=== PATIENT | female | born 1935 | race African-American/Black ===

== ENCOUNTER 2018-04-18 13:15 | Inpatient (IN) | payer MEDICARE, MEDICAID ==
[~2018-04-18] VITALS: Ht 162.6 cm; Wt 68.7 kg
[~2018-04-18 13:15] MED LIST: ASPIRIN EC81 MG ORAL; AUGMENTIN 875-1 EAC1 ORAL; BACTRIM DS TAB1 EAC1 ORAL; BRIMONIDINE TART5 ML BOTH EYES; COLACE100 MG ORAL; COMBIGAN EYE DRO5 ML OP; DIOVAN160 MG ORAL; FEMARA2.5 MG ORAL; KLOR-CON 1010 MEQ ORAL; LIPITOR10 MG ORAL; LUMIGAN2.5 ML BOTH EYES; METOPROLOL SUCC25 MG ORAL; METOPROLOL TART25 MG ORAL; NIFEDIPINE ER30 MG ORAL; PHENAZOPYRIDIN200 MG ORAL; POTASSIUM CHLO20 ME3 PO
[2018-04-18] MEDS ORDERED: Sodium Chloride 500ML 500 ML IV ONE (13:21)
[2018-04-18] MEDS ORDERED: Solu-MEDROL 125mg Inj IVP ONE (13:30)
--- NOTE | 2018-04-18 13:34 | Diagnostic Imaging Report ---
EXAM: XR Chest, 1 View CLINICAL HISTORY: SOB TECHNIQUE: Frontal view of the chest. COMPARISON: Chest x-ray 07/16/16 FINDINGS: Lungs: Hypoventilatory lungs. Bibasilar lung atelectasis. Evidence of COPD. Pleural space: Unremarkable. No pneumothorax. Heart: Unremarkable. No cardiomegaly. Mediastinum: Unremarkable. Bones/joints: Degenerative changes of the spine. IMPRESSION: 1. Hypoventilatory lungs. Bibasilar lung atelectasis. 2. Evidence of COPD.
[2018-04-18] MEDS: Albuterol ud Inhalation HHN SCH ×3 (13:38→14:00)
[2018-04-18] MEDS: Ipratropium 0.02% Inh Soln 2.5ml UD HHN SCH ×3 (13:38→14:00)
--- NOTE | 2018-04-18 13:53 | Emergency Room Report ---
History of Present Illness General Chief Complaint: Dyspnea/Respdistress Source: Patient, EMS Present Illness HPI Patient is a 83-year-old female who presented after increased shortness of breath. Patient gradual onset of symptoms. Patient reports having prior history of COPD. The patient is currently a smoker. The patient had the reported increased difficulty with breathing for the past few days which had worsened. She denies any fever. The patient reportedly takes inhalers the without any improvement. Allergies: Coded Allergies: LEVOFLOXACIN (Verified Allergy, Unknown, 12/31/14) Patient History Past Medical History: see triage record Reviewed Nursing Documentation: PMH: Agreed; PSxH: Agreed Nursing Documentation-PMH Past Medical History: No History, Except For Hx Cardiac Problems: Yes Hx Hypertension: Yes Hx Pacemaker: No Hx Asthma: No Hx COPD: No Hx Diabetes: No Hx Cancer: Yes Hx Gastrointestinal Problems: No Hx Dialysis: No Hx Neurological Problems: No Hx Cerebrovascular Accident: No Hx Seizures: No Hx Dizziness: Yes Hx Syncope: Yes Review of Systems All Other Systems: negative except mentioned in HPI Physical Exam Vital Signs Date Time Temp Pulse Resp B/P (MAP) Pulse Ox O2 Delivery O2 Flow Rate FiO2 04/18/18 13:12 97.5 83 18 157/71 96 Room Air 97.5 04/18/18 13:38 21 Sp02 EP Interpretation: reviewed, normal General Appearance: normal inspection, alert, GCS 15, thin, Chronically Ill Head: atraumatic ENT: normal ENT inspection, hearing grossly normal, normal voice Neck: normal inspection, full range of motion, supple, no bony tend Respiratory: normal inspection, no retraction, wheezing, expiration Cardiovascular #1: no edema, irregularly irregular Gastrointestinal: normal inspection, normal bowel sounds, non tender, soft, no guarding, no hernia Genitourinary: no CVA tenderness Musculoskeletal: normal inspection, back normal, normal range of motion Neurologic: normal inspection, alert, responsive, speech normal Psychiatric: normal inspection, judgement/insight normal, mood/affect normal Skin: normal inspection, normal color, no rash Medical Decision Making Diagnostic Impression: Primary Impression: COPD exacerbation Additional Impressions: Atrial arrhythmia Hematuria UTI (urinary tract infection) ER Course Patient presented for shortness of breath.Differential included but was not limited to anemia, pneumonia, pneumothorax, myocardial infarction, pericardial effusion, congestive heart failure, acidosis. Because of complexity of patient' s case laboratory testing and imaging studies were ordered. EKG interpreted by me showed normal sinus rhythm with a rate of 78 with multiple PACs. The patient was given breathing treatments as well as IV steroids. Patient was started on IV magnesium for arrhythmia.Patient was discussed with for Dr. Quiñonez for inpatient management Labs Test 04/18/18 13:45 04/18/18 14:50 White Blood Count 5.4 K/UL (4.8-10.8) Red Blood Count 4.64 M/UL (4.20-5.40) Hemoglobin 13.8 G/DL (12.0-16.0) Hematocrit 42.5 % (37.0-47.0) Mean Corpuscular Volume 91 FL (80-99) Mean Corpuscular Hemoglobin 29.6 PG (27.0-31.0) Mean Corpuscular Hemoglobin Concent 32.4 G/DL (32.0-36.0) Red Cell Distribution Width 14.9 % (11.6-14.8) Platelet Count 180 K/UL (150-450) Mean Platelet Volume 8.7 FL (6.5-10.1) Neutrophils (%) (Auto) 53.0 % (45.0-75.0) Lymphocytes (%) (Auto) 29.0 % (20.0-45.0) Monocytes (%) (Auto) 10.8 % (1.0-10.0) Eosinophils (%) (Auto) 5.5 % (0.0-3.0) Basophils (%) (Auto) 1.8 % (0.0-2.0) Sodium Level 137 MMOL/L (136-145) Potassium Level 4.6 MMOL/L (3.5-5.1) Chloride Level 104 MMOL/L (98-107) Carbon Dioxide Level 27 MMOL/L (21-32) Anion Gap 6 mmol/L (5-15) Blood Urea Nitrogen 12 mg/dL (7-18) Creatinine 0.8 MG/DL (0.55-1.30) Estimat Glomerular Filtration Rate mL/min (>60) Glucose Level 91 MG/DL (74-106) Lactic Acid Level 1.10 mmol/L (0.4-2.0) Calcium Level 9.4 MG/DL (8.5-10.1) Total Bilirubin 0.6 MG/DL (0.2-1.0) Aspartate Amino Transf (AST/SGOT) 46 U/L (15-37) Alanine Aminotransferase (ALT/SGPT) 21 U/L (12-78) Alkaline Phosphatase 92 U/L (46-116) Total Creatine Kinase 107 U/L (26-308) Creatine Kinase MB 1.0 NG/ML (0.0-3.6) Creatine Kinase MB Relative Index 0.9 Troponin I 0.000 ng/mL (0.000-0.056) Pro-B-Type Natriuretic Peptide 50 pg/mL (0-125) Total Protein 7.8 G/DL (6.4-8.2) Albumin 3.5 G/DL (3.4-5.0) Globulin 4.3 g/dL Albumin/Globulin Ratio 0.8 (1.0-2.7) Urine Color Pale yellow Urine Appearance Clear Urine pH 6.5 (4.5-8.0) Urine Specific [place] 1.010 (1.005-1.035) Urine Protein 1+ (NEGATIVE) Urine Glucose (UA) Negative (NEGATIVE) Urine Ketones 2+ (NEGATIVE) Urine Occult Blood 1+ (NEGATIVE) Urine Nitrite Positive (NEGATIVE) Urine Bilirubin Negative (NEGATIVE) Urine Urobilinogen 1 MG/DL (0.0-1.0) Urine Leukocyte Esterase 1+ (NEGATIVE) Urine RBC 5-10 /HPF (0 - 2) Urine WBC 10-15 /HPF (0 - 2) Urine Squamous Epithelial Cells Few /LPF (NONE/OCC) Urine Bacteria Many /HPF (NONE) EKG Diagnostic Results Rate: normal Rhythm: NSR, other - multiple pacs ST Segments: no acute changes Rhythm Strip Diag. Results EP Interpretation: yes Rhythm: NSR, other - multiple pacs Chest X-Ray Diagnostic Results Chest X-Ray Diagnostic Results : Chest X-Ray Ordered: Yes # of Views/Limited/Complete: 1 View Indication: Shortness of Breath EP Interpretation: No Interpretation: no consolidation, no effusion, no pneumothorax, no acute cardiopulmonary disease, other - copd changes Impression: Other - COPD Electronically Signed by: Electronically signed by Dr. Eusebio Lake M.D. Last Vital Signs Date Time Temp Pulse Resp B/P (MAP) Pulse Ox O2 Delivery O2 Flow Rate FiO2 04/18/18 13:38 77 22 98 Room Air 21 04/18/18 13:12 97.5 157/71 97.5 Status: unchanged Disposition: ADMITTED INPATIENT Condition: Serious Eusebio Lake MD Apr 18, 2018 13:53
[2018-04-18 13:57] VITALS: BP 137/71
[2018-04-18 14:04] LABS: BASOPHILS % (AUTO) 1.8 % (0.0-2.0); EOSINOPHILS % (AUTO) 5.5 % (0.0-3.0); HEMATOCRIT 42.5 % (37.0-47.0); HEMOGLOBIN 13.8 G/DL (12.0-16.0); MEAN CORPUSCULAR VOLUME 91 FL (80-99); MONOCYTES % (AUTO) 10.8 % (1.0-10.0); PLATELET COUNT 180 K/UL (150-450); RED BLOOD COUNT 4.64 M/UL (4.20-5.40); RED CELL DISTRIBUTION WIDTH 14.9 % (11.6-14.8); WHITE BLOOD COUNT 5.4 K/UL (4.8-10.8)
[2018-04-18 14:13] LABS: ANION GAP 6 mmol/L (5-15); BLOOD UREA NITROGEN 12 mg/dL (7-18); CALCIUM 9.4 MG/DL (8.5-10.1); CARBON DIOXIDE 27 MMOL/L (21-32); CHLORIDE 104 MMOL/L (98-107); CREATININE 0.8 MG/DL (0.55-1.30); POTASSIUM 4.6 MMOL/L (3.5-5.1); SODIUM 137 MMOL/L (136-145)
[2018-04-18 14:26] LABS: ALANINE AMINOTRANSFERASE 21 U/L (12-78); ALBUMIN 3.5 G/DL (3.4-5.0); ALBUMIN/GLOBULIN RATIO 0.8 (1.0-2.7); ALKALINE PHOSPHATASE 92 U/L (46-116); ASPARTATE AMINO TRANSFERASE 46 U/L (15-37); BILIRUBIN,TOTAL 0.6 MG/DL (0.2-1.0); CREATINE KINASE 107 U/L (26-308)
[2018-04-18] MEDS ORDERED: Albuterol ud Inhalation HHN ONE (15:15)
[2018-04-18] MEDS ORDERED: guaiFENesin 100mg/5ml Liq ud ORAL ONE (15:15)
[2018-04-18 15:25] LABS: APPEARANCE,URINE CLEAR; BILIRUBIN, URINE NEGATIVE (NEGATIVE); COLOR,URINE PALE YELLOW; GLUCOSE, URINE (UA) NEGATIVE (NEGATIVE); KETONES,URINE 2+ (NEGATIVE); LEUKOCYTE ESTERASE ,URINE 1+ (NEGATIVE); NITRITE,URINE POSITIVE (NEGATIVE); PH,URINE 6.5 (4.5-8.0); PROTEIN,URINE 1+ (NEGATIVE); UROBILINOGEN,URINE 1 MG/DL (0.0-1.0)
[2018-04-18] MEDS ORDERED: cefTRIAXone 1 GM in NS 55 ML IVPB ONE (15:45)
[2018-04-18 16:10] VITALS: BP 141/113
[2018-04-18 16:28] VITALS: BP 168/80
[2018-04-18] MEDS ORDERED: KLOR-CON 1010 MEQ ORAL (16:36)
[2018-04-18 17:45] VITALS: BP 153/70
[2018-04-18 20:00] VITALS: BP 136/90
[2018-04-18] MEDS ORDERED: Albuterol/Ipratropium 3ml neb HHN PRN (21:22)
[2018-04-19] VITALS: BP 140/83
[2018-04-19 04:00] VITALS: BP 120/60
[2018-04-19 05:33] LABS: HEMOGLOBIN 13.4 G/DL (12.0-16.0); MEAN CORPUSCULAR VOLUME 91 FL (80-99); PLATELET COUNT 205 K/UL (150-450); RED CELL DISTRIBUTION WIDTH 14.5 % (11.6-14.8); WHITE BLOOD COUNT 3.3 K/UL (4.8-10.8)
[2018-04-19 06:07] LABS: ANION GAP 10 mmol/L (5-15); BLOOD UREA NITROGEN 15 mg/dL (7-18); CALCIUM 9.5 MG/DL (8.5-10.1); CARBON DIOXIDE 24 MMOL/L (21-32); CHLORIDE 107 MMOL/L (98-107); CREATININE 0.8 MG/DL (0.55-1.30); POTASSIUM 3.1 MMOL/L (3.5-5.1); SODIUM 141 MMOL/L (136-145)
[2018-04-19 08:00] VITALS: BP 149/77
[2018-04-19] MEDS ORDERED: NIFEdipine 10mg cap ORAL SCH (09:00)
[2018-04-19] MEDS: Docusate 100mg cap ORAL SCH ×3 (09:00→09:27)
[2018-04-19] MEDS ORDERED: Brimonidine 0.2% Opth Sol BOTH EYES SCH (09:00)
[2018-04-19] MEDS: Irbesartan 150mg tablet ORAL SCH (09:18)
[2018-04-19] MEDS: Metoprolol Succinate XL 25mg tab ORAL SCH (09:20)
[2018-04-19] MEDS: NIFEdipine 10mg cap ORAL SCH ×2 (09:20→18:41)
[2018-04-19] MEDS: Guaifenesin/DM 10ml syrup ORAL PRN ×2 (11:23→14:53)
[2018-04-19 12:00] VITALS: BP 111/75
[2018-04-19 16:00] VITALS: BP 150/70
[2018-04-19] MEDS ORDERED: SYSTANE BOTH EYES PRN (16:00)
--- NOTE | 2018-04-19 17:43 | Cardiology Report ---
APPROVED REPORT EKG Measurement Heart [id number] NM [id number] Sinus rhythm with premature atrial complexes Nonspecific ST abnormality Abnormal ECG
[2018-04-19] MEDS ORDERED: Docusate 100mg cap ORAL PRN (17:45)
[2018-04-19] MEDS: AZOPT BOTH EYES SCH (18:41)
[2018-04-19] MEDS: Albuterol/Ipratropium 3ml neb HHN SCH (18:49)
[2018-04-19 20:00] VITALS: BP 128/70
[2018-04-19] MEDS ORDERED: cefTRIAXone 2 GM in D5W 110 ML IVPB SCH (20:00)
[2018-04-19] MEDS: Solu-MEDROL 40mg Inj IVP SCH (20:22)
[2018-04-19] MEDS ORDERED: LUMIGAN BOTH EYES SCH (21:00)
[2018-04-20] VITALS: BP 136/60
[2018-04-20 04:00] VITALS: BP 130/70
--- NOTE | 2018-04-20 04:45 | History and Physical Report ---
DATE OF ADMISSION: 04/18/2018 CHIEF COMPLAINT: Dyspnea and respiratory distress. HISTORY OF PRESENT ILLNESS: This is an 83-year-old female with a past medical history of tobacco abuse, hypertension, and hyperlipidemia, who presents to the ED because of worsening respiratory function. According to the patient, for the past few days, she has been having difficulty with breathing with shortness of breath. No fever. No chills. No chest pain. She does take inhalers, but did not show any improvement. She presented to the ED for further evaluation and treatment. Upon arrival, a chest x-ray done, which showed hypoventilatory lung, bibasilar lung atelectasis, and evidence of chronic obstructive pulmonary disease. The patient was started on breathing treatments. She was given a dose of antibiotics as well as IV Solu-Medrol. The patient is then admitted for further evaluation and treatment. Upon seeing the patient, she is still in some respiratory distress with cough. Lung examination did show bilateral wheezing noted for which the patient was started on Solu-Medrol. Her UA was also noted to be abnormal for which she was started on antibiotic. Otherwise, the patient is doing well in no acute distress. PAST MEDICAL HISTORY: Hypertension, hyperlipidemia, COPD, tobacco abuse. PAST SURGICAL HISTORY: Noncontributory. ALLERGIES: Levofloxacin. REVIEW OF SYSTEMS: Negative except for pertinent positives listed above in the HPI. PHYSICAL EXAMINATION: GENERAL: Awake, alert, in no apparent distress. HEENT: PERRLA. CARDIOVASCULAR: S1 and S2. Regular rhythm. RESPIRATORY: Diminished breath sounds bilaterally. Wheezing noted bilaterally. No rhonchi or rales. CARDIOVASCULAR: S1 and S2. Regular rate and rhythm. ABDOMEN: Soft and nontender. EXTREMITIES: Lower extremities, no edema noted. IMPRESSION AND PLAN: 1. Chronic obstructive pulmonary disease exacerbation. Repeat chest x-ray. We will start the patient on DuoNeb q.6 h. while awake. Give the patient Solu-Medrol 40 IV q.12 h. We will also give cough suppressant. 2. Hypertension. Continue nifedipine, metoprolol, and losartan. 3. Hyperlipidemia. Continue statin. 4. Tobacco abuse. The patient was given counseling. 5. Abnormal UA. Continue Rocephin 2 g daily. Genoveva Luke MD DR: MARK JOB#: [id number] CC:
[2018-04-20 06:08] LABS: BASOPHILS % (AUTO) 0.3 % (0.0-2.0); HEMATOCRIT 39.5 % (37.0-47.0); HEMOGLOBIN 12.6 G/DL (12.0-16.0); LYMPHOCYTES % (AUTO) 17.2 % (20.0-45.0); MEAN CORPUSCULAR VOLUME 91 FL (80-99); MONOCYTES % (AUTO) 4.9 % (1.0-10.0); NEUTROPHILS % (AUTO) 77.6 % (45.0-75.0); PLATELET COUNT 183 K/UL (150-450); RED BLOOD COUNT 4.34 M/UL (4.20-5.40); RED CELL DISTRIBUTION WIDTH 14.9 % (11.6-14.8); WHITE BLOOD COUNT 5.4 K/UL (4.8-10.8)
[2018-04-20 06:39] LABS: ANION GAP 8 mmol/L (5-15); BLOOD UREA NITROGEN 12 mg/dL (7-18); CALCIUM 8.9 MG/DL (8.5-10.1); CARBON DIOXIDE 26 MMOL/L (21-32); CHLORIDE 106 MMOL/L (98-107); CREATININE 0.7 MG/DL (0.55-1.30); POTASSIUM 3.4 MMOL/L (3.5-5.1); SODIUM 140 MMOL/L (136-145)
[2018-04-20 08:00] VITALS: BP 156/81
[2018-04-20] MEDS: Albuterol/Ipratropium 3ml neb HHN SCH ×3 (08:03→20:16)
[2018-04-20] MEDS ORDERED: [UNRECOGNIZED DRUG - OTHER] BOTH EYES SCH (09:00)
[2018-04-20] MEDS ORDERED: NS 500ML ONE (09:36)
[2018-04-20] MEDS ORDERED: Tubing IV Secondary IV ONE (09:36)
[2018-04-20] MEDS: AZOPT BOTH EYES SCH (09:41)
[2018-04-20] MEDS: Solu-MEDROL 40mg Inj IVP SCH (09:41)
[2018-04-20] MEDS: Guaifenesin/DM 10ml syrup ORAL PRN ×2 (09:42→14:37)
[2018-04-20] MEDS: NIFEdipine 10mg cap ORAL SCH ×2 (09:42→17:38)
[2018-04-20] MEDS: Metoprolol Succinate XL 25mg tab ORAL SCH (09:42)
[2018-04-20] MEDS: Irbesartan 150mg tablet ORAL SCH (09:43)
[2018-04-20 12:00] VITALS: BP 105/64
--- NOTE | 2018-04-20 12:13 | Diagnostic Imaging Report ---
Indication: Dyspnea Comparison: 04/18/2018 A single view chest radiograph was obtained. Findings: Cardiomediastinal appearance is within normal limits for age. Pulmonary vascularity is appropriate. The diaphragmatic contour is smooth and costophrenic angles are sharp. No pleural effusions are identified. The bones are unremarkable. Impression: No acute findings
[2018-04-20 16:00] VITALS: BP 143/69
[2018-04-20] MEDS ORDERED: Albuterol/Ipratropium 3ml neb HHN PRN (17:30)
[2018-04-20] MEDS ORDERED: Docusate 100mg cap ORAL PRN (17:45)
--- NOTE | 2018-04-20 17:53 | General Progress Note ---
Assessment/Plan Problem List: (1) Hypokalemia ICD Codes: E87.6 - Hypokalemia SNOMED: 01679406 (2) COPD exacerbation ICD Codes: J44.1 - Chronic obstructive pulmonary disease with (acute) exacerbation SNOMED: 752488447 (3) UTI (urinary tract infection) ICD Codes: N39.0 - Urinary tract infection, site not specified SNOMED: 44181683 (4) Tobacco use (5) Hypertension ICD Codes: I10 - Hypertension SNOMED: 87479951 (6) HX: breast cancer ICD Codes: Z85.3 - HX: breast cancer SNOMED: 458787665 Status: stable, progressing Assessment/Plan - Continue duonebs q6hr ATC and prn - change IV solumedrol to PO prednisone - continue azithromycin and ceftriaxone - f/u urine cx - replete lytes prn - venous ultrasound showing 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 No indication for anticoagulation at this time. - discussed smoking cessation - pain control and supportive care - downgrade to med-surg DVT Prophylaxis: SCD, HSQ Code Status: Full Hospital Classification Declaration: Based on this initial evaluation, and depending on the patient's clinical course, I anticipate that this patient will require hospitalization for 2-3 days for COPD exacerbation and close respiratory /hemodynamic monitoring. Disposition: Once the patient is stable to leave the hospital, I anticipate the patient will likely be discharged to the following environment: home with I spent 37 minutes on this patient's case, and 20 minutes were dedicated to counseling and/or care coordination. Discussed with patient/family, nursing staff, SW/CM, regarding clinical status, treatment course, and disposition planning. Time of note may not reflect time of encounter. Subjective Date patient seen: Apr 20, 2018 Time patient seen: 17:44 Allergies: Coded Allergies: LEVOFLOXACIN (Verified Allergy, Unknown, 12/31/14) Subjective - no acute events overnight - still c/o sob and wheezing. denies cp - has been sinus rhythm on telemetry Objective Last 24 Hour Vital Signs Date Time Temp Pulse Resp B/P (MAP) Pulse Ox O2 Delivery O2 Flow Rate FiO2 04/20/18 17:38 79 143/69 04/20/18 16:00 97.1 79 21 143/69 94 Room Air 97.1 04/20/18 13:29 79 20 99 Room Air 21 04/20/18 13:29 80 20 94 Room Air 21 04/20/18 12:00 74 04/20/18 12:00 98.0 83 20 105/64 94 Room Air 98.0 04/20/18 09:43 156/81 04/20/18 09:42 85 156/81 04/20/18 09:42 85 156/81 04/20/18 08:13 85 20 98 Room Air 21 04/20/18 08:09 81 20 Room Air 21 04/20/18 08:00 97.6 85 19 156/81 96 Room Air 97.6 04/20/18 08:00 100 04/20/18 07:30 82 20 95 Room Air 04/20/18 04:00 69 04/20/18 04:00 98.2 80 20 130/70 96 Room Air 98.2 04/20/18 00:00 93 04/20/18 00:00 98.0 60 20 136/60 95 Room Air 98.0 04/19/18 20:00 96 04/19/18 20:00 97.0 88 20 128/70 95 Room Air 97.0 04/19/18 19:01 77 18 Room Air 04/19/18 18:59 80 18 100 Room Air 04/19/18 18:50 81 18 98 Room Air 04/19/18 18:41 82 150/70 Intake and Output 04/19/18 04/20/18 19:00 07:00 Intake Total 450 ml 220 ml Output Total 2 ml Balance 448 ml 220 ml Intake Oral 450 ml IV Total 220 ml Output Stool Total 2 ml # Voids 3 3 Laboratory Tests 04/20/18 05:35: White Blood Count 5.4#, Red Blood Count 4.34, Hemoglobin 12.6, Hematocrit 39.5, Mean Corpuscular Volume 91, Mean Corpuscular Hemoglobin 29.1, Mean Corpuscular Hemoglobin Concent 32.0, Red Cell Distribution Width 14.9H, Platelet Count 183, Mean Platelet Volume 9.4, Neutrophils (%) (Auto) 77.6H, Lymphocytes (%) (Auto) 17.2L, Monocytes (%) (Auto) 4.9, Eosinophils (%) (Auto) 0.0, Basophils (%) (Auto ) 0.3, Sodium Level 140, Potassium Level 3.4L, Chloride Level 106, Carbon Dioxide Level 26, Anion Gap 8, Blood Urea Nitrogen 12, Creatinine 0.7, Estimat Glomerular Filtration Rate , Glucose Level 137H, Calcium Level 8.9 Height (Feet): 5 Height (Inches): 4.00 Weight (Pounds): 153 General Appearance: alert, mild distress EENT: PERRL/EOMI, normal ENT inspection Neck: non-tender, normal alignment, supple Cardiovascular: normal peripheral pulses, normal rate, regular rhythm Respiratory/Chest: chest wall non-tender, respiratory distress, expiratory wheezing Abdomen: normal bowel sounds, non tender, soft Extremities: normal range of motion, non-tender Neurologic: hotel concierge II-XII grossly normal, no motor/sensory deficits, alert, oriented x 3 Skin: normal pigmentation, warm/dry Jihan Lamb NP Apr 20, 2018 17:53
[2018-04-20] MEDS ORDERED: Azithromycin 250mg tab ORAL SCH (19:30)
[2018-04-20 20:00] VITALS: BP 109/52
[2018-04-20] MEDS ORDERED: cefTRIAXone 1 GM in NS 55 ML IVPB SCH (20:00)
[2018-04-20] MEDS ORDERED: cefTRIAXone 2 GM in D5W 110 ML IVPB SCH (20:00)
[2018-04-20] MEDS ORDERED: Solu-MEDROL 40mg Inj IVP SCH (21:00)
[2018-04-21] VITALS: BP 116/60
[2018-04-21 04:00] VITALS: BP 163/76
[2018-04-21 06:00] VITALS: BP 120/69
[2018-04-21] MEDS: Albuterol/Ipratropium 3ml neb HHN SCH ×2 (07:43→12:50)
[2018-04-21 08:00] VITALS: BP 126/63
[2018-04-21 08:34] LABS: BASOPHILS % (AUTO) 0.9 % (0.0-2.0); EOSINOPHILS % (AUTO) 0.3 % (0.0-3.0); HEMATOCRIT 41.1 % (37.0-47.0); HEMOGLOBIN 13.4 G/DL (12.0-16.0); LYMPHOCYTES % (AUTO) 20.6 % (20.0-45.0); MEAN CORPUSCULAR VOLUME 91 FL (80-99); MONOCYTES % (AUTO) 6.6 % (1.0-10.0); NEUTROPHILS % (AUTO) 71.6 % (45.0-75.0); PLATELET COUNT 215 K/UL (150-450); RED BLOOD COUNT 4.51 M/UL (4.20-5.40); RED CELL DISTRIBUTION WIDTH 14.8 % (11.6-14.8); WHITE BLOOD COUNT 8.9 K/UL (4.8-10.8)
[2018-04-21 08:55] LABS: ANION GAP 9 mmol/L (5-15); BLOOD UREA NITROGEN 17 mg/dL (7-18); CALCIUM 9.9 MG/DL (8.5-10.1); CARBON DIOXIDE 25 MMOL/L (21-32); CHLORIDE 105 MMOL/L (98-107); POTASSIUM 3.2 MMOL/L (3.5-5.1); SODIUM 139 MMOL/L (136-145)
[2018-04-21] MEDS: NIFEdipine 10mg cap ORAL SCH (08:55)
[2018-04-21] MEDS ORDERED: Irbesartan 150mg tablet ORAL SCH (09:00)
[2018-04-21] MEDS ORDERED: Metoprolol Succinate XL 25mg tab ORAL SCH (09:00)
[2018-04-21 12:00] VITALS: BP 113/63
[2018-04-21] MEDS ORDERED: Guaifenesin/DM 10ml syrup ORAL PRN (12:00)
[2018-04-21] MEDS ORDERED: SPIRIVA RESPIMAT4 G1 IH (13:27)
[2018-04-21] MEDS ORDERED: ZITHROMAX250 MG ORAL (13:27)
[2018-04-21] MEDS ORDERED: CEFUROXIME500 MG PO (13:27)
[2018-04-21] MEDS ORDERED: PREDNISONE20 MG ORAL (13:27)
[2018-04-21] MEDS ORDERED: DUONEB 0.5-3(2.53 ML HHN (13:27)
--- NOTE | 2018-04-21 14:08 | Diagnostic Imaging Report ---
APPROVED REPORT CPT Code: 91158 Present Symptoms Comments: R/O DVT RIGHT LEG: Venous imaging reveals recanalized chronic thrombus in the superficial femoral to popliteal veins. Large collateral vein noted anterior to the superficial femoral artery. Imaging also reveals patency of the common femoral and calf veins. The greater saphenous vein is also within normal limits. Doppler indicates normal spontaneous flow within these segments. LEFT LEG: Venous imaging reveals a patent deep venous system. There is no evidence of thrombus within the femoral, popliteal or tibial segments. The greater saphenous vein is also within normal limits. Doppler indicates normal spontaneous flow within these segments. There is no evidence of acute deep vein thrombosis.
--- NOTE | 2018-04-21 14:17 | Discharge Summary ---
Discharge Summary Hospital Course Date of Admission Apr 18, 2018 at 13:50 Date of Discharge April 21, 2018 Admitting Diagnosis ASTHMA, SOB HPI Heavenly Acuna is a 83 year old female who was admitted on Apr 18, 2018 at 13 :50 for Asthma,Shortness Of Breath This is an 83-year-old female with a past medical history of tobacco abuse, hypertension, and hyperlipidemia, who presents to the ED because of worsening respiratory function. According to the patient, for the past few days, she has been having difficulty with breathing with shortness of breath. No fever. No chills. No chest pain. She does take inhalers, but did not show any improvement. She presented to the ED for further evaluation and treatment. Upon arrival, a chest x-ray done, which showed hypoventilatory lung, bibasilar lung atelectasis, and evidence of chronic obstructive pulmonary disease. The patient was started on breathing treatments. She was given a dose of antibiotics as well as IV Solu-Medrol. The patient is then admitted for further evaluation and treatment. Upon seeing the patient, she is still in some respiratory distress with cough. Lung examination did show bilateral wheezing noted for which the patient was started on Solu-Medrol. Her UA was also noted to be abnormal for which she was started on antibiotic. Otherwise, the patient is doing well in no acute distress. Consultations None Procedures None Hospital Course Patient was admitted and started on IV antibiotics, duonebs, and IV solumedrol. Repeat CXR was done, which showed no acute process. Bilateral LE venous U/S was also done, which showed right superficial thrombosis to the femoral vein. Patient was continued on heparin subq during hospital stay and was advised to ambulate. There was no indication to start anticoagulation as it was a superficial thrombosis. Patient's wheezing resolved and patient was switched over to oral prednisone. Patient's urine culture showed Klebsiella growth. Patient's shortness of breath resolved and patient was hemodynamically stable for discharge. Patient was discharged with antibiotics, prednisone, and COPD maintenance regimen medications. Patient was advised to follow up with her PCP within 1 week. Discharge Medications New Medications: Cefuroxime Axetil* (Cefuroxime*) 500 Mg Tablet 500 MG PO Q12HR for 3 Days, #6 TAB Prednisone* (Prednisone*) 20 Mg Tablet 60 MG ORAL DAILY for 3 Days, #3 TAB Tiotropium [place] (Spiriva Respimat) 4 Gm Mist.inhal 4 GM IH Q12HR for 30 Days, #1 EA Azithromycin* (Zithromax*) 250 Mg Tablet 500 MG ORAL Q24H for 4 Days, #4 TAB Ipratropium/Albuterol Sulfate (DuoNeb 0.5-3(2.5)mg/3ml) 3 Ml Ampul.neb 3 ML HHN Q4H PRN for 30 Days, #1 EA Continued Medications: Aspirin Ec* (Aspirin Ec*) 81 Mg Tablet.dr 325 MG ORAL DAILY, TAB Atorvastatin Calcium* (Lipitor*) 10 Mg Tablet 10 MG ORAL BEDTIME, TAB Bimatoprost (Lumigan) 2.5 Ml Drops 1 DROP BOTH EYES DAILY, #2.5 ML 0 Refills Brimonidine Tartrate* (Alphagan*) 5 Ml Drops 1 DROP BOTH EYES BID Brimonidine Tartrate/Timolol (Combigan Eye Drops) 5 Ml Drops 5 ML OP DAILY, ML Docusate Sodium* (Colace*) 100 Mg Capsule 100 MG ORAL TWICE A DAY PRN for Constipation, CAP Letrozole (Femara) 2.5 Mg Tab 2.5 MG ORAL DAILY, #10 TAB 0 Refills Metoprolol Succinate* (Metoprolol Succinate*) 25 Mg Tab.er.24h 50 MG ORAL BID, TAB Nifedipine Er* (Nifedipine Er*) 30 Mg Tablet.er 25 MG ORAL BID, TAB Potassium Chloride (Potassium Chloride) 20 Meq Tablet.er 10 MEQ PO BID, TAB Valsartan (Diovan) 160 Mg Tab 160 MG ORAL DAILY, TAB Discontinued Medications: Phenazopyridine Hcl* (Pyridium*) 200 Mg Tablet 200 MG ORAL THREE TIMES A DAY, #14 TAB 0 Refills Potassium Chloride (Klor-Con 10) 10 Meq Tablet.er 10 MEQ ORAL DAILY, #30 TAB 0 Refills Trimethoprim/Sulfamethoxazole 160/800* (Bactrim Ds Tablet*) 1 Each Tablet 1 TAB ORAL TWICE A DAY for 7 Days, #14 TAB Discharge Condition Upon Discharge: improving, stable Discharge Disposition Patient was discharged to home with home health. Discharge Diagnoses: (1) Hearing loss (2) HX: breast cancer (3) Glaucoma (4) Hypertension (5) Tobacco use (6) Hypokalemia (7) COPD exacerbation (8) UTI (urinary tract infection) Jihan Lamb NP Apr 21, 2018 14:17
== END 2018-04-21 15:50 | disposition home or self-care (01) | DRG 191 ==
LOC: EDBD 13:15 → EMR 13:46 → 2W 13:50 → EDBEDREQ 16:02 → 2W 21:41 → 3E 04-20 15:35
DX: J44.1 Chronic obstructive pulmonary disease with (acute) exacerbation (principal); N39.0 Urinary tract infection, site not specified; I10 Essential (primary) hypertension; E78.5 Hyperlipidemia, unspecified; F17.200 Nicotine dependence, unspecified, uncomplicated; H91.90 Unspecified hearing loss, unspecified ear; Z85.3 Personal history of malignant neoplasm of breast; H40.9 Unspecified glaucoma; E87.6 Hypokalemia; Z88.1 Allergy status to other antibiotic agents
CPT/HCPCS: 36415; 71045; 80048; 80053; 81003; 82550; 82553; 83605; 83880; 84484; 85007; 85025; 87040; 87086; 87181; 93005; 93970; 94640; 94664; 99285; J7620; J8499